=== PATIENT | female | born 1965 | race African-American/Black ===

== ENCOUNTER 2025-09-08 06:27 | Day surgery (SDC) | payer MEDICAID ==
[2025-09-08] VITALS (11 sets, daily range): BP systolic 128–210; BP diastolic 47–86; PULSE 50–111; RESP 13–17; O2SAT 91–100
[~2025-09-08] VITALS: Ht 167.6 cm; Wt 127.0 kg
[~2025-09-08 06:27] MED LIST: ALBUAER3 IN; AMIO200T33 PO; APIX5TAB PO; ATOR-47 PO; CHOL20007 PO; CLON0.1T PO; FERR325T20 PO; FURO20TA3 PO; HYDR-4798 PO; IPRA0.00 IN; MAGN400T40 PO; METO25TA5 PO; MULT-1018 PO; NIFE1TAB30 PO; NITR0.4S29 SL; PRE5T GT; TIRZ7.5I2 SC
[2025-09-08] MEDS ORDERED: fentaNYL CITRATE 100 MCG/2 ML VL IV ONE (07:30)
[2025-09-08] MEDS ORDERED: MIDAZOLAM HCL 2MG/2ML 2ml VIAL (1mg/ml) IV ONE (07:30)
[2025-09-08] MEDS ORDERED: LIDOCAINE VISCOUS 2% 15ML UD PO ONE (07:30)
[2025-09-08] MEDS: IPRATROPIUM BROM 0.5 MG/2.5ML INH SOL NEB ONE (08:44)
[2025-09-08] MEDS: IPRATROPIUM BROM 0.5 MG/2.5ML INH SOL ONE (08:44)
[2025-09-08] MEDS: ALBUTEROL SULF 2.5 MG/0.5ML(0.5%) NEB SOLN ONE (08:44)
[2025-09-08] MEDS: ALBUTEROL SULF 2.5 MG/0.5ML(0.5%) NEB SOLN NEB ONE (08:44)
--- NOTE | 2025-09-08 10:45 | DVHOP2 ---
Operative Report Trans-Esophageal Echocardiogram PROCEDURE REPORT Date of Service: 09/08/2025 Food Mixer Assembler: Gifty Godfrey MD PROCEDURE PERFORMED: Transesophageal echocardiogram, conscious sedation administration and supervision, more than 15 minutes. Intra cardiac bubble study. PREOPERATIVE DIAGNOSES: r/o Valvular heart disease. DESCRIPTION OF PROCEDURE: The patient signed informed consent understanding risks, benefits and alternatives of the procedure, she wished to proceed. The patient was given 15 mL of oral viscous lidocaine. She was placed in a left lateral decubitus position and conscious sedation was administered per lab systems analyst protocol (1 mg of Versed and 50 mcg of Fentanyl). I administered a bite block into her mouth and a MARTÍN probe into the mid esophagus without any difficulties or complications. Multiple planar images were obtained. Bubble study was also performed. At the completion of procedure, MARTÍN probe was removed and there were no immediate complications. Vitals signs were stable throughout the procedure. FINDINGS: 1. Left ventricle: Mild concentrated Left ventricular hypertrophy was seen. LVEF was 60%. There was no gross wall motion abnormality seen. 2. Right ventricle: RV was normal sized with normal systolic compression. 3. Left atrium: LA enlarged 4. Right atrium: RA was enlarged. 5. Mitral valve: Mild Mitral regurgitation was seen. Component of Rheumatic valve disease is considered. Leaflets were opening. Pressure gradient was elevated (mean gradient was 25 mmHG). Still, no more than Moderate Mitral Stenosis is considered. Patient was tachycardic and Aortic Insufficiency jet and flow were considered attributing to this increased pressure gradient. Calculated MVA was 2 cm or more (pressure half time technique). There was no vegetation 6. Left atrial appendage: No evidence of thrombus. 7. Aortic valve: Trileaflet valve. No stenosis. Moderate Aortic Insufficiency was seen. There was no vegetation 8. Pulmonic valve: Trivial pulmonic insufficiency. No significant stenosis. 9. Tricuspid valve: Mild tricuspid regurgitation. There was no vegetation 10. Interatrial septum: Negative color flow for right to left shunt was observed. Bubble study was performed: negative for shunt 11. Pericardium: No significant effusion. 12. Thoracic aorta: No significant plaquing. Rheumatic valves. Up to moderate Mitral Stenosis and Moderate Aortic insufficiency. GIFTY GODFREY MD Sep 08, 2025 10:45
== END 2025-09-08 10:55 | disposition home or self-care (01) ==
LOC: CATH 06:27
PROVIDERS: ATTEND Internal Medicine Cardiovascular Disease
DX: I08.3 Combined rheumatic disorders of mitral, aortic and tricuspid valves (principal); F41.9 Anxiety disorder, unspecified; E66.01 Morbid (severe) obesity due to excess calories; G47.33 Obstructive sleep apnea (adult) (pediatric); J44.9 Chronic obstructive pulmonary disease, unspecified; E11.9 Type 2 diabetes mellitus without complications; I11.0 Hypertensive heart disease with heart failure; I50.9 Heart failure, unspecified; Z86.73 Personal history of transient ischemic attack (TIA), and cerebral infarction without residual deficits; Z88.0 Allergy status to penicillin; Z79.01 Long term (current) use of anticoagulants; Z87.891 Personal history of nicotine dependence; Z79.899 Other long term (current) drug therapy
CPT/HCPCS: 93312; 93320; 93325; 94640; J2250; J3010; J7040; 99152